=== PATIENT | female | born 1975 | race Caucasian/White ===

== ENCOUNTER → 2020-05-22 10:46 | Outpatient (CLI) | payer BC, SELFPAY ==
--- NOTE | ~2020-05-22 | MR_ITS ---
EXAMINATION: MR knee RT wo con DATE: 05/22/2020 11:38 INDICATION: Recurrent right patellar dislocation presenting with generalized right knee pain and amberly ing. TECHNIQUE: Magnetic resonance imaging (MRI) of the right knee was performed without intravenous contr ast. Sequences included coronal PD-weighted FSE, coronal PD-weighted FS FSE, sagittal T2-weighted FS E, sagittal PD-weighted FS FSE and axial PD weighted fat saturated FSE. COMPARISON: None. FINDINGS: Medial compartment: Medial meniscus is normal. Deep chondral fissuring without degenerative subchondral changes along the anterior to central weightbearing medial femoral condyle. Small marginal osteophytes are present. Lateral compartment: Displaced bucket-handle tear of the lateral meniscus with small band of meniscus extending anteropost eriorly along the intercondylar eminence. Additional longitudinal horizontal tear plane extending to the inferior articular surface at the posterior horn of the lateral meniscus. Deep chondral fissuring with irregularity to the underlying articular cortex consistent with small central subchondral osteo phytes at the central to posterior weightbearing lateral femoral condyle. Additional deep fissuring w ithout degenerative subchondral changes at the central and posterior aspect of the lateral tibial shantell teau. Small marginal osteophytes are present. Patellofemoral compartment: Deep chondral ulceration without degenerative subarticular changes at the cephalad aspect of the troc hlear groove and medial trochlea. Less severe chondral ulceration involving up to 50% the cartilage t hickness at the patellar apical ridge. Ligaments and tendons: Posterior cruciate ligament is normal. At least partial tear of the anterior cruciate ligament with f oot % at the site of expected tibial insertion of the posterolateral bundle. While not well appreciat ed on the sagittal images on both the axial and coronal images there appears to be a residual intact anteromedial bundle of the tendon. The medial collateral ligament and fibular collateral ligament com plex are normal. The extensor mechanism is normal. The visualized medial and lateral hamstring tendon s as well as the iliotibial band are normal. Fluid: Physiologic amount of fluid in the joint space. No loose osteochondral bodies identified. Osseous/other: Red marrow reexpansion in the metaphyseal regions of the distal femur and proximal tibia. No fracture or abnormal marrow replacing process. IMPRESSION: 1. Likely partial tear of the posterolateral bundle of the anterior cruciate ligament. At least a por tion of the anteromedial bundle appears to remain intact. Correlate with physical exam to assess for degree of residual functional integrity. 2. Complex lateral meniscal tear including a small medially displaced bucket-handle flap. 3. 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 Reviewed, dictated and finalized at location A. IMPRESSION: 1. Likely partial tear of the posterolateral bundle of the anterior cruciate li gament. At least a portion of the anteromedial bundle appears to remain intact. Correlate with physical exam to assess for degree of residual functional integ rity. 2. Complex lateral meniscal tear including a small medially displaced bucket-olmedo ndle flap. 3. 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
== END ==
DX: M17.11 Unilateral primary osteoarthritis, right knee (principal); S83.271A Complex tear of lateral meniscus, current injury, right knee, initial encounter; X58.XXXA Exposure to other specified factors, initial encounter
CPT/HCPCS: 73721

== ENCOUNTER → 2020-11-28 14:50 | Outpatient (CLI) | payer BC, SELFPAY ==
--- NOTE | ~2020-11-28 | US_ITS ---
EXAMINATION: US pelvic complete w TV DATE: 11/28/2020 15:20 INDICATION: Pelvic pain. Comparison: No prior studies for comparison. TECHNIQUE: Multiple transabdominal and endovaginal sonographic images of the pelvis performed. FINDINGS: The uterus is surgically absent. Right ovary is enlarged measuring 6.7 x 4.5 x 7 cm and con tains 2 cysts, largest measuring 4 cm. Left ovary not visualized. No free fluid in the pelvis. IMPRESSION: 1. Enlarged right ovary containing 2 cysts, largest measuring up to 4 cm greatest dimension. Reviewed, dictated and finalized at location A. PULLER IMPRESSION: 1. Enlarged right ovary containing 2 cysts, largest measuring up to [address] dimension.
== END ==
DX: R10.2 Pelvic and perineal pain (principal); Z90.710 Acquired absence of both cervix and uterus; N83.201 Unspecified ovarian cyst, right side
CPT/HCPCS: 76830; 76856